=== PATIENT | male | born 1995 | race Caucasian/White ===

== ENCOUNTER 2019-11-20 23:48 | Emergency (ER) | payer OTHER ==
[~2019-11-20] VITALS: Ht 154.9 cm; Wt 77.1 kg
[2019-11-20 23:55] VITALS: Ht 154.9 cm; Wt 77.1 kg
[2019-11-21 00:50] VITALS: BP 128/82
== END 2019-11-21 01:56 | disposition home or self-care (01) ==
LOC: ED 23:48
DX: S81.852A Open bite, left lower leg, initial encounter (principal); S81.851A Open bite, right lower leg, initial encounter; Q90.9 Down syndrome, unspecified; W57.XXXA Bitten or stung by nonvenomous insect and other nonvenomous arthropods, initial encounter; Y93.89 Activity, other specified; Y92.89 Other specified places as the place of occurrence of the external cause; Y99.8 Other external cause status